=== PATIENT | female | born 1965 | race African-American/Black ===

== ENCOUNTER 2018-10-24 22:58 | Emergency (ER) | payer SELFPAY ==
[~2018-10-24] VITALS: Ht 160 cm; Wt 53.0 kg
[2018-10-24] MEDS ORDERED: LORAZEPAM 2MG/ML CPJ IV STA (23:42)
[2018-10-24] MEDS ORDERED: SODIUM CHLORIDE 0.9% 1,000 ML IV ONE (23:42)
[2018-10-25] MEDS ORDERED: LORAZEPAM 1MG TABLET PO ONE (00:30)
[2018-10-25 00:37] LABS: BASOPHILS % 1.1 % (0.0-2.0); EOSINOPHILS % 1.3 % (0.0-5.0); HEMATOCRIT. 37.1 % (36.0-48.0); HEMOGLOBIN. 12.6 g/dL (12.0-16.0); LYMPHOCYTES % 16.9 % (20.0-50.0); MEAN CORPUSCULAR HEMOGLOBIN 30.9 pg (28.0-32.0); MEAN CORPUSCULAR VOLUME 91.2 fL (81.0-99.0); MEAN PLATELET VOLUME 8.3 fl (7.4-10.4); MONOCYTES % 9.4 % (2.0-8.0); NEUTROPHILS % 71.3 % (40.0-76.0); PLATELET 305 x1000/uL (130-400); RED BLOOD CELL COUNT 4.07 mill/uL (4.2-5.4); RED CELL DISTRIBUTION WIDTH 14.6 % (11.6-14.6)
[2018-10-25 00:40] LABS: CHLORIDE 103 mEq/L (98-107)
[2018-10-25 00:45] LABS: ETHANOL BLOOD < 10 mg/dL
[2018-10-25 01:00] LABS: CREATINE KINASE 1952 IU/L (26-192)
[2018-10-25] MEDS ORDERED: SODIUM CHLORIDE 0.9% 1,000 ML IV ONE ×3 (01:05→06:45)
[2018-10-25 08:38] LABS: CREATINE KINASE 982 IU/L (26-192)
[2018-10-25 08:54] LABS: CLARITY URINE CLEAR (CLEAR); COLOR URINE YELLOW (YELLOW); KETONES URINE TRACE (NEGATIVE); LEUKOCYTE ESTERASE URINE NEGATIVE (NEGATIVE); NITRITE URINE NEGATIVE (NEGATIVE); OCCULT BLOOD URINE NEGATIVE (NEGATIVE); PROTEIN URINE NEGATIVE (NEGATIVE); SPECIFIC GRAVITY URINE 1.003 (1.005-1.030); UROBILINOGEN URINE 0.2 E.U./dL (0.2-1.0)
[2018-10-25 09:24] LABS: *AMPHETAMINES SCREEN URINE PRESUMTIVE POSITIVE (NEGATIVE); *BARBITURATES SCREEN URINE NEGATIVE (NEGATIVE); *BENZODIAZEPINES SCREEN URINE NEGATIVE (NEGATIVE); *COCAINE SCREEN URINE NEGATIVE (NEGATIVE); CANNABINOID URINE SCREEN NEGATIVE (NEGATIVE); METHADONE URINE SCREEN NEGATIVE (NEGATIVE); PHENCYCLIDINE URINE SCREEN NEGATIVE (NEGATIVE)
[2018-10-25 09:25] LABS: OPIATES URINE SCREEN NEGATIVE (NEGATIVE)
[2018-10-25 09:30] VITALS: BP 118/75
== END 2018-10-25 13:00 | disposition left against medical advice (07) ==
LOC: ER 22:58 → EDBD 22:58 → ER 10-25 13:00
DX: M62.82 Rhabdomyolysis (principal); E86.0 Dehydration; F29 Unspecified psychosis not due to a substance or known physiological condition; R45.851 Suicidal ideations; F17.210 Nicotine dependence, cigarettes, uncomplicated
CPT/HCPCS: 36415; 80053; 80305; 80307; 80320; 80329; 81003; 82550; 83690; 84443; 84484; 85025; 93005; 96360; 96361; 99284; 99406; J7030; G0480